=== PATIENT | female | born 1935 | race Caucasian/White ===

== ENCOUNTER 2021-02-10 14:16 | Outpatient (CLI) | payer OTHER | END 2021-02-10 23:59 | disposition home or self-care (01) | LOC: RAD 14:16 | PROVIDERS: ATTEND Family Medicine | DX: R13.12 Dysphagia, oropharyngeal phase (principal); K44.9 Diaphragmatic hernia without obstruction or gangrene | CPT/HCPCS: 74220; 74230 ==